=== PATIENT | male | born 2000 | race Caucasian/White ===

== ENCOUNTER 2025-08-15 15:53 | Outpatient (CLI) | payer OTHER, SELFPAY ==
--- NOTE | ~2025-08-15 | CT_ITS ---
EXAMINATION: CT sinus wo con DATE: 08/15/2025 16:05 INDICATION: Chronic sinusitis TECHNIQUE: Computed tomography (CT) of the paranasal sinuses was performed without intravenous contrast. The dose-length product was 313.63 mGy-cm. Automated exposure control and iterative reconstruction technique were employed. COMPARISON: None FINDINGS: There is mild mucosal thickening of the maxillary sinuses. No air- fluid levels. No significant mucoperiosteal reaction. No nasal septal action. Ostiomeatal units are patent. Mastoids are pneumatized. IMPRESSION: 1. Mild maxillary sinus disease. Reviewed, dictated and finalized at location O. [employer]
== END 2025-08-15 15:54 | disposition home or self-care (01) ==
LOC: MICIMG 15:54
PROVIDERS: PCP Otolaryngology Otolaryngology/Facial Plastic Surgery; Visit Provider Otolaryngology Otolaryngology/Facial Plastic Surgery
DX: J32.0 Chronic maxillary sinusitis (principal)
CPT/HCPCS: 70486